=== PATIENT | male | born 1970 | race Caucasian/White ===

== ENCOUNTER 2024-05-16 12:50 | Outpatient (CLI) | payer BC, SELFPAY ==
--- NOTE | 2024-05-16 14:09 | W.ANESCHARGE ---
Anesthesia Charges Start Date/Time Anesthesia Start Date: 05/16/24 Anesthesia Start Time: 13:45 Stop Date/Time Anesthesia Stop Date: 05/16/24 Anesthesia Stop Time: 14:05
--- NOTE | 2024-05-16 14:39 | W.ANESCHARGE ---
Anesthesia Charges Start Date/Time Anesthesia Start Date: 05/16/24 Anesthesia Start Time: 13:45 Stop Date/Time Anesthesia Stop Date: 05/16/24 Anesthesia Stop Time: 14:05
== END 2024-05-16 12:51 | disposition home or self-care (01) ==
LOC: OP CLINIC 12:54
PROVIDERS: PCP Family Medicine; Visit Provider Internal Medicine Gastroenterology
DX: Z12.11 Encounter for screening for malignant neoplasm of colon (principal); Z86.0101 Personal history of adenomatous and serrated colon polyps
CPT/HCPCS: 00811; 00812; 45378; J2704